=== PATIENT | male | born 1990 | race Caucasian/White ===

== ENCOUNTER 2016-07-23 19:53 | Emergency (ER) | payer OTHER ==
[~2016-07-23] VITALS: Ht 182.9 cm; Wt 108.4 kg
[2016-07-23] MEDS ORDERED: AMOXICILLIN500 MG PO (20:15)
[2016-07-23] MEDS ORDERED: LORTAB 5/3255 MG PO (20:15)
[2016-07-23 20:30] VITALS: BP 127/84
== END 2016-07-23 20:30 | disposition home or self-care (01) | DRG 159 ==
LOC: ED 19:53
DX: K08.89 Other specified disorders of teeth and supporting structures (principal); K01.1 Impacted teeth; K02.9 Dental caries, unspecified

== ENCOUNTER 2016-10-18 20:05 | Emergency (ER) | payer SELFPAY ==
[~2016-10-18] VITALS: Ht 182.9 cm; Wt 110.6 kg
[~2016-10-18 20:05] MED LIST: AMOXICILLIN500 MG PO; LORTAB 5/3255 MG PO
[2016-10-18 22:20] LABS: HEMATOCRIT 39.8 % (39.0-50.0); HEMOGLOBIN 13.8 g/dl (14.0-18.0); IMMATURE GRANULOCYTES 0.2 % (0.0-1.0); MEAN CELL VOLUME 91.7 fL CALC (80.0-100.0); MEAN CORPUSCULAR HGB 31.8 pG CALC (26.0-32.0); MEAN CORPUSCULAR HGB CONC 34.7 g/L CALC (32.0-36.0); NEUT# 4.73 thou/uL (1.82-7.42); RED BLOOD COUNT 4.34 mill/uL (4.70-6.10); RED CELL DISTRI WIDTH 11.9 % (11.5-15.5)
[2016-10-18 22:28] LABS: ALBUMIN 4.4 g/dL (3.2-5.0); ALKALINE PHOSPHATASE 52 u/l (38-126); AMYLASE 42 u/l (30-110); ANION GAP 16 (6-22 (CALC)); BILIRUBIN, TOTAL 0.3 mg/dL (0.0-1.4); BUN 11 mg/dL (9-20); BUN/CREATININE RATIO 14 (12-20 (CALC)); CALCIUM 9.7 mg/dL (8.4-10.2); CARBON DIOXIDE 25 mmol/l (22-30); CHLORIDE 105 mmol/l (95-108); CREATININE 0.8 mg/dL (0.7-1.3); GFR > 60 ML/MIN (>=60 (CALC)); GFR FOR AFR.AMER. > 60 ML/MIN (>=60 (CALC)); GLUCOSE 105 mg/dL (75-110); LIPASE 74 u/l (23-300); POTASSIUM 4.2 mmol/l (3.5-5.1); SGOT/AST 26 u/l (17-59); SGPT/ALT 44 u/l (21-72); SODIUM 141 mmol/l (137-146); TOTAL PROTEIN 7.4 g/dL (6.3-8.2)
[2016-10-18] MEDS ORDERED: ULTRAM50 M1 PO (23:34)
[2016-10-19 00:32] LABS: URINE BILIRUBIN - DIPSTICK NEGATIVE (NEGATIVE); URINE BLOOD DIPSTICK NEGATIVE (NEGATIVE); URINE CLARITY SLIGHT CLOUDY; URINE COLOR YELLOW; URINE GLUCOSE - DIPSTICK NEGATIVE (NEGATIVE); URINE KETONE NEGATIVE (NEGATIVE); URINE LEUK ESTERASE NEGATIVE (NEGATIVE); URINE NITRITE - DIPSTICK NEGATIVE (Negative); URINE PH 6.5 (4.5-8.0); URINE PROTEIN - DIPSTICK NEGATIVE (NEG-TRACE); URINE SPECIFIC GRAVITY 1.025; URINE UROBILINOGEN - DIPSTICK 0.2 E.U./dL (0.2)
[2016-10-19 00:36] VITALS: BP 134/60
== END 2016-10-18 23:48 | disposition home or self-care (01) | DRG 392 ==
LOC: ED 20:05
DX: R19.7 Diarrhea, unspecified (principal); F17.210 Nicotine dependence, cigarettes, uncomplicated; G89.29 Other chronic pain; M54.9 Dorsalgia, unspecified
CPT/HCPCS: Q9967

== ENCOUNTER 2017-10-06 10:16 | Emergency (ER) | payer OTHER ==
[~2017-10-06] VITALS: Ht 182.9 cm; Wt 113.0 kg
[~2017-10-06 10:16] MED LIST changes: +ULTRAM50 M1 PO
[2017-10-06 10:26] VITALS: BP 123/80
[2017-10-06 10:55] LABS: HEMATOCRIT 42.4 % (39.0-50.0); HEMOGLOBIN 14.6 g/dl (14.0-18.0); IMMATURE GRANULOCYTES 0.3 % (0.0-5.0); MEAN CELL VOLUME 90.8 fL CALC (80.0-100.0); MEAN CORPUSCULAR HGB 31.3 pG CALC (26.0-32.0); MEAN CORPUSCULAR HGB CONC 34.4 g/L CALC (32.0-36.0); NEUT# 1.46 thou/uL (1.82-7.42); RED BLOOD COUNT 4.67 mill/uL (4.70-6.10); RED CELL DISTRI WIDTH 12.1 % (11.5-15.5)
[2017-10-06 11:05] LABS: INFLUENZA A NONE DETECTED (NONE DETECT); INFLUENZA B NONE DETECTED (NONE DETECT)
[2017-10-06] MEDS ORDERED: ZITHROMAX250 MG PO (11:08)
== END 2017-10-06 11:15 | disposition home or self-care (01) | DRG 153 ==
LOC: ED 10:16
PROVIDERS: Emergency Medicine
DX: J06.9 Acute upper respiratory infection, unspecified (principal); M79.1 Myalgia; R05 Cough; R11.2 Nausea with vomiting, unspecified; F17.210 Nicotine dependence, cigarettes, uncomplicated; R50.9 Fever, unspecified

== ENCOUNTER 2018-01-07 13:29 | Emergency (ER) | payer OTHER ==
[~2018-01-07] VITALS: Ht 182.9 cm; Wt 113.6 kg
[~2018-01-07 13:29] MED LIST changes: +ZITHROMAX250 MG PO
[2018-01-07] MEDS ORDERED: IBUPROFEN600 MG PO (13:57)
[2018-01-07] MEDS ORDERED: PENICILLN VK500 MG PO (13:57)
[2018-01-07 14:05] VITALS: BP 134/72
== END 2018-01-07 14:05 | disposition home or self-care (01) | DRG 158 ==
LOC: ED 13:29
DX: K04.7 Periapical abscess without sinus (principal); K02.9 Dental caries, unspecified; M84.68XA Pathological fracture in other disease, other site, initial encounter for fracture; F17.210 Nicotine dependence, cigarettes, uncomplicated

== ENCOUNTER 2019-12-04 14:02 | Emergency (ER) | payer SELFPAY ==
[~2019-12-04] VITALS: Ht 182.9 cm; Wt 115.0 kg
[~2019-12-04 14:02] MED LIST changes: +IBUPROFEN600 MG PO; +PENICILLN VK500 MG PO
[2019-12-04 15:10] VITALS: BP 123/69
== END 2019-12-04 15:10 | disposition home or self-care (01) | DRG 605 ==
LOC: ED 14:02
PROC: 0HQGXZZ Repair Left Hand Skin, External Approach (ICD-10-PCS; principal; 2019-12-04)
DX: S61.412A Laceration without foreign body of left hand, initial encounter (principal); F17.210 Nicotine dependence, cigarettes, uncomplicated; W26.0XXA Contact with knife, initial encounter; Y93.89 Activity, other specified; Y92.009 Unspecified place in unspecified non-institutional (private) residence as the place of occurrence of the external cause